=== PATIENT | female | born 1995 | race Two or more races ===

== ENCOUNTER 2017-10-10 04:30 | Emergency (ER) | payer MEDICAID ==
[2017-10-10 04:35] VITALS: O2SAT 98
--- NOTE | 2017-10-10 04:37 | EDPHY ---
H & P Stated Complaint: 5 episodes of emesis today HPI/ROS: HPI CHIEF COMPLAINT: upp Abdominal pain, nausea, vomiting HISTORY OF PRESENT ILLNESS: This patient is a 22-year-old female, she is otherwise healthy does not take any daily medications she presents emergency room nausea vomiting and upper abdominal pain. Patient reports to me this started around midnight. She has had 5 episode of vomiting. She also endorses some upper/epigastric abdominal pain. Describes as crampy. She denies any urinary symptoms. Denies being . Denies chest pain or shortness of breath. Denies fever. She states she had salmon for dinner and maybe this made her sick. She decided come the emergency room as she had persistent vomiting last night. Also additionally she reports some very mild diarrhea. Past Medical History: No significant medical history Past Surgical History: No significant surgical history Social History: Denies daily use of drugs alcohol tobacco. Family History: Noncontributory ROS REVIEW OF SYSTEMS: A comprehensive 10 point review of systems is otherwise negative aside from elements mentioned in the history of present illness. Exam Constitutional appears well nontoxic triage nursing summary reviewed, vital signs reviewed, awake/alert. Eyes normal conjunctivae and sclera, EOMI, PERRLA. HENT normal inspection, atraumatic, moist mucus membranes, no epistaxis, neck supple/ no meningismus, no raccoon eyes. Respiratory clear to auscultation bilaterally, normal breath sounds, no respiratory distress, no wheezing. Cardiovascular rate normal, regular rhythm, no murmur, no edema, distal pulses normal. Gastrointestinal soft, epigastric, no ruq pain, no significant lower abdominal pain on exam, no rebound, no guarding, normal bowel sounds, no distension, no pulsatile mass. Genitourinary no CVA tenderness. Musculoskeletal no midline vertebral tenderness, full range of motion, no calf swelling, no tenderness of extremities, no meningismus, good pulses, neurovascularly intact. Skin pink, warm, & dry, no rash, skin atraumatic. Neurologic awake, alert and oriented x 3, AAOx3, moves all 4 extremities equally, motor intact, sensory intact, CN II-XII intact, normal cerebellar, normal vision, normal speech. Psychiatric normal mood/affect. Heme/Lymph/Immune no lymphadenopathy. Differential diagnosis includes but is not limited to and in no particular order : Bowel obstruction, appendicitis, gallbladder disease, diverticulitis, colitis , enteritis, perforated viscus, gastritis, GERD, esophagitis, urinary tract infection, pyelonephritis, kidney stones Medical Decision Making: Plan for this patient IV established with IV fluid bolus, IV Zofran for nausea, check basic blood work, check urinalysis, test, IV fluids, CT scan abdomen pelvis with IV contrast given abdominal pain. Re-evaluation: 0548AM: CT scan called to me by Dr. Becker, CT scan abdomen pelvis with IV contrast shows a right ovarian cyst. However no acute inflammatory process seen on the abdomen. Was unable to visualize the appendix but there is no right lower quadrant periappendiceal inflammation. 0627: I did reassess this patient at this time. Abdomen is soft nontender. She is feeling much better after IV fluids and nausea medicine. Does complain still of some very mild 2/10 epigastric discomfort, will give her GI cocktail to see if this improves her discomfort. She has not had any vomiting or diarrhea here. CT scan is unable to see her appendix but there are no other signs of acute appendicitis or inflammatory changes in the right lower quadrant. Does have a right ovarian cyst. She is not tender in her right lower quadrant or right adnexa. I think appendicitis is unlikely given her clinical presentation of nausea vomiting and diarrhea. However I did explain that we did not see her appendix and then if she has worsening abdominal pain fever vomiting she needs return emergency room for re-evaluate. She understands this. 0648: Patient p.o. challenge well. No acute distress. Like to go home. Abdomen is soft. Return precautions discussed. Source: Patient - Personal History LMP (Females 10-55): IUD In Place Current Tetanus/Diphtheria Vaccine: Yes Current Tetanus Diphtheria and Acellular Pertussis (TDAP): Yes - Medical/Surgical History Hx Asthma: No Hx Chronic Respiratory Disease: No Hx Diabetes: No Hx Cardiac Disease: No Hx Renal Disease: No Hx Cirrhosis: No Hx Alcoholism: No Hx HIV/AIDS: No Hx Splenectomy or Spleen Trauma: No Other PMH: DENIES - Social History Smoking Status: Current every day smoker Constitutional: Initial Vital Signs Temperature (C) 37.0 C 10/10/17 04:32 Heart Rate 104 H 10/10/17 04:32 Respiratory Rate 16 10/10/17 04:32 Blood Pressure 106/64 10/10/17 04:32 O2 Sat (%) 98 10/10/17 04:32 O2 Delivery Mode Room Air Allergies/Adverse Reactions: No Known Allergies Allergy (Verified 10/10/17 04:35) Home Medications: Medication Instructions Recorded Ondansetron HCl [Zofran] 4 mg PO Q4-6PRN PRN #10 tablet 10/10/17 Medical Decision Making - Data Points Laboratory Results: Laboratory Results 10/10/17 04:50 10/10/17 04:50 10/10/17 10/10/17 10/10/17 06:30 04:50 04:50 WBC RBC Hgb Hct MCV MCH MCHC RDW Plt Count MPV Neut % (Auto) Lymph % (Auto) Nelson % (Auto) Eos % (Auto) Baso % (Auto) Nucleat RBC Rel Count Absolute Neuts (auto) Absolute Lymphs (auto) Absolute Monos (auto) Absolute Eos (auto) Absolute Basos (auto) Absolute Nucleated RBC Immature Gran % Immature Gran # Sodium 141 mEq/L mEq/L (134-144) Potassium 4.0 mEq/L mEq/L (3.5-5.2) Chloride 105 mEq/L mEq/L (97-110) Carbon Dioxide 21 mEq/l L mEq/l (22-31) Anion Gap 15 mEq/L mEq/L (8-16) BUN 12 mg/dL mg/dL (7-23) Creatinine 0.7 mg/dL mg/dL (0.6-1.0) Estimated GFR > 60 Glucose 107 mg/dL H mg/dL (70-100) Calcium 9.6 mg/dL mg/dL (8.5-10.4) Total Bilirubin 0.6 mg/dL mg/dL (0.1-1.4) Conjugated Bilirubin 0.2 mg/dL mg/dL (0.0-0.5) Unconjugated Bilirubin 0.4 mg/dL mg/dL (0.0-1.1) AST 28 IU/L IU/L (14-46) ALT 34 IU/L IU/L (9-52) Alkaline Phosphatase 80 IU/L IU/L (38-126) Total Protein 7.8 g/dL g/dL (6.3-8.2) Albumin 4.5 g/dL g/dL (3.5-5.0) Lipase 70 IU/L IU/L (23-300) Beta HCG, Qual NEGATIVE Urine Color YELLOW Urine Appearance CLEAR Urine pH 5.0 (5.0-7.5) Ur Specific [place] > 1.035 H (1.002-1.030) Urine Protein NEGATIVE (NEGATIVE) Urine Ketones 1+ H (NEGATIVE) Urine Blood NEGATIVE (NEGATIVE) Urine Nitrate NEGATIVE (NEGATIVE) Urine Bilirubin NEGATIVE (NEGATIVE) Urine Urobilinogen NEGATIVE EU EU (0.2-1.0) Ur Leukocyte Esterase NEGATIVE (NEGATIVE) Urine Glucose NEGATIVE (NEGATIVE) 10/10/17 04:50 WBC 9.92 10^3/uL H 10^3/uL (3.80-9.50) RBC 4.62 10^6/uL 10^6/uL (4.18-5.33) Hgb 15.2 g/dL g/dL (12.6-16.3) Hct 42.3 % % (38.0-47.0) MCV 91.6 fL fL (81.5-99.8) MCH 32.9 pg pg (27.9-34.1) MCHC 35.9 g/dL g/dL (32.4-36.7) RDW 11.9 % % (11.5-15.2) Plt Count 222 10^3/uL 10^3/uL (150-400) MPV 9.6 fL fL (8.7-11.7) Neut % (Auto) 90.2 % H % (39.3-74.2) Lymph % (Auto) 5.6 % L % (15.0-45.0) Nelson % (Auto) 3.5 % L % (4.5-13.0) Eos % (Auto) 0.2 % L % (0.6-7.6) Baso % (Auto) 0.3 % % (0.3-1.7) Nucleat RBC Rel Count 0.0 % % (0.0-0.2) Absolute Neuts (auto) 8.94 10^3/uL H 10^3/uL (1.70-6.50) Absolute Lymphs (auto) 0.56 10^3/uL L 10^3/uL (1.00-3.00) Absolute Monos (auto) 0.35 10^3/uL 10^3/uL (0.30-0.80) Absolute Eos (auto) 0.02 10^3/uL L 10^3/uL (0.03-0.40) Absolute Basos (auto) 0.03 10^3/uL 10^3/uL (0.02-0.10) Absolute Nucleated RBC 0.00 10^3/uL 10^3/uL (0-0.01) Immature Gran % 0.2 % % (0.0-1.1) Immature Gran # 0.02 10^3/uL 10^3/uL (0.00-0.10) Sodium Potassium Chloride Carbon Dioxide Anion Gap BUN Creatinine Estimated GFR Glucose Calcium Total Bilirubin Conjugated Bilirubin Unconjugated Bilirubin AST ALT Alkaline Phosphatase Total Protein Albumin Lipase Beta HCG, Qual Urine Color Urine Appearance Urine pH Ur Specific [place] Urine Protein Urine Ketones Urine Blood Urine Nitrate Urine Bilirubin Urine Urobilinogen Ur Leukocyte Esterase Urine Glucose Medications Given: Discontinued Medications Al Hydroxide/Mg Hydroxide (Maalox Susp) 30 ml PO ONCE ONE Stop: 10/10/17 06:25 Last Admin: 10/10/17 06:35 Dose: 30 ml Hyoscyamine Sulfate (Levsin, Hyomax-Sl) 0.25 mg PO ONCE ONE Stop: 10/10/17 06:25 Last Admin: 10/10/17 06:35 Dose: 0.25 mg Sodium Chloride (Ns) 1,000 mls @ 0 mls/hr IV EDNOW ONE; Wide Open PRN Reason: Protocol Stop: 10/10/17 04:41 Last Admin: 10/10/17 04:50 Dose: 1,000 mls Sodium Chloride (Ns) 1,000 mls @ 0 mls/hr IV EDNOW ONE; Wide Open PRN Reason: Protocol Stop: 10/10/17 04:41 Last Admin: 10/10/17 05:53 Dose: 1,000 mls Lidocaine (Lidocaine 2% Viscous) 15 ml PO ONCE ONE Stop: 10/10/17 06:25 Last Admin: 10/10/17 06:35 Dose: 15 ml Ondansetron HCl (Zofran) 4 mg IVP EDNOW ONE Stop: 10/10/17 04:41 Last Admin: 10/10/17 04:50 Dose: 4 mg Departure - Departure Disposition: Home, Routine, Self-Care Clinical Impression: Nausea vomiting and diarrhea Condition: Good Instructions: Acute Nausea and Vomiting (ED) Additional Instructions: 1. Return to the emergency room if you develop worsening abdominal pain fever vomiting. 2. [place] diet next 24-48 hours. Referrals: NONE *PRIMARY CARE P,. [Primary Care Provider] - As per Instructions Prescriptions: Ondansetron HCl [Zofran] 4 mg PO Q4-6PRN PRN #10 tablet PRN Reason: Nausea/Vomiting, Use 1st
[2017-10-10] MEDS ORDERED: ONDANSETRON 4 MG/2 ML VIAL IVP ONE (04:40)
[2017-10-10] MEDS ORDERED: NS 1,000 ML IV ONE ×2 (04:40)
[2017-10-10] MEDS ORDERED: IOPAMIDOL (ISOVUE-300) 100 ML BTL ONE (04:56)
[2017-10-10 05:00] LABS: PLATELET COUNT 222 10^3/uL (150-400)
[2017-10-10] MEDS ORDERED: LIDOCAINE 2% VISCOUS 15 ML UDCUP PO ONE (06:24)
[2017-10-10] MEDS ORDERED: MAG HYDROX/AL HYDROX/SIMETH 30 ML UDCUP PO ONE (06:24)
[2017-10-10] MEDS ORDERED: HYOSCYAMINE SULFATE 0.125 MG TAB PO ONE (06:24)
[2017-10-10 07:01] VITALS: BP 107/63; PULSE 76; RESP 18; TEMP 97.7
== END 2017-10-10 07:03 | disposition home or self-care (01) ==
DX: R11.2 Nausea with vomiting, unspecified (principal); R19.7 Diarrhea, unspecified; E86.9 Volume depletion, unspecified; F17.200 Nicotine dependence, unspecified, uncomplicated
CPT/HCPCS: 96374; J2405; Q9967